=== PATIENT | female | born 1960 | race Two or more races ===

== ENCOUNTER 2024-09-21 03:45 | Emergency (ER) | payer OTHER ==
[~2024-09-21] VITALS: Ht 157.5 cm; Wt 97.5 kg
[~2024-09-21 03:45] MED LIST: BYSTOLIC5 MG; HYZAAR 100-121 UDTAB; KOMBIGLYZE XR1 EAC2; PREVACID15 MG; SIMVASTATIN20 MG; XANAX0.25 MG; ZOLOFT100 MG
[2024-09-21] MEDS ORDERED: KETOROLAC TROMETHAMINE 30 MG VIAL IV STA (04:34)
[2024-09-21 04:52] LABS: HEMATOCRIT 38.1 % (36.0-45.00); HEMOGLOBIN 13.1 g/dL (12.0-15.00); MEAN CELL VOLUME 81.5 fL (80.00-100.00); MEAN CORPUSCULAR HGB CONC 34.3 g/dl (32.0-36.0); PLATELET COUNT 210 K/uL (150-450); RED BLOOD COUNT 4.68 M/uL (4.00-6.00); RED CELL DISTRIBUTION WIDTH 15.3 % (11.5-14.5)
[2024-09-21 04:55] LABS: PH,URINE 5.5 (5.0-8.0); URINE APPEARANCE Clear; URINE BILIRRUBIN Negative (NEGATIVE); URINE BLOOD Negative; URINE COLOR Yellow; URINE KETONE Negative (NEGATIVE); URINE LEUKOCYTE Small; URINE NITRATE Negative; URINE PROTEIN 30 (NEGATIVE); URINE UROBILINOGEN 0.2 E.U./dl
[2024-09-21 04:56] LABS: URINE BACTERIA 182.6 uL (0.0-1933); URINE EPITHELIAL CELLS 23.8 uL (0.0-38.8); URINE WBC 44.9 uL (0.0-23.2)
[2024-09-21 04:57] LABS: URINE GLUCOSE >=1000 MG/DL (NEGATIVE); URINE RBC 0.6 uL (0.0-20.8)
[2024-09-21 07:03] LABS: CALCIUM 9.6 mg/dL (8.5-10.1); CREATININE SERUM 0.75 mg/dL (0.55-1.02); GFR 78.56; POTASSIUM 4.18 mEq/L (3.5-5.1)
[2024-09-21] MEDS ORDERED: CEPHALEXIN500 MG PO (08:32)
[2024-09-21] MEDS ORDERED: DOLOGESIC-DF 51 EACH PO (08:32)
== END 2024-09-21 09:18 ==
LOC: ER 03:46
PROVIDERS: General Practice
DX: N39.0 Urinary tract infection, site not specified (principal); R10.9 Unspecified abdominal pain; I10 Essential (primary) hypertension; E11.9 Type 2 diabetes mellitus without complications; Z79.84 Long term (current) use of oral hypoglycemic drugs; Z88.1 Allergy status to other antibiotic agents

== ENCOUNTER 2025-03-26 05:30 | Emergency (ER) | payer OTHER ==
[~2025-03-26] VITALS: Ht 157.5 cm; Wt 144.2 kg
[~2025-03-26 05:30] MED LIST changes: +CEPHALEXIN500 MG PO; +DOLOGESIC-DF 51 EACH PO
[2025-03-26] MEDS ORDERED: ORPHENADRINE CITRATE 30 MG/ML AMPUL IM STA (07:23)
[2025-03-26] MEDS ORDERED: KETOROLAC TROMETHAMINE 60 MG VIAL IM STA (07:23)
[2025-03-26] MEDS ORDERED: ALPRAzolam 1 MG TABLET PO STA (07:24)
[2025-03-26] MEDS ORDERED: ORPHENADRINE CITRATE 30 MG/ML AMPUL ONE (07:49)
[2025-03-26] MEDS ORDERED: KETOROLAC TROMETHAMINE 60 MG VIAL IM ONE (07:49)
== END 2025-03-26 08:04 | disposition home or self-care (01) ==
LOC: ER 06:00
DX: G24.3 Spasmodic torticollis (principal); F41.9 Anxiety disorder, unspecified; E11.9 Type 2 diabetes mellitus without complications; Z79.84 Long term (current) use of oral hypoglycemic drugs; Z88.8 Allergy status to other drugs, medicaments and biological substances; I10 Essential (primary) hypertension